=== PATIENT | male | born 1955 | race Caucasian/White ===

== ENCOUNTER 2022-03-18 07:58 | Outpatient (CLI) | payer BC, SELFPAY ==
--- NOTE | 2022-03-18 09:12 | ECG_ITS ---
Measurements Intervals [facility] Rate: 63 P: 71 [place]: 192 QRS: 44 QRSD: 80 T: 45 QT: 378 QTc: 389 Interpretive Statements SINUS RHYTHM BASELINE ARTIFACT- I, II, III, AVR, AVL, AVF NORMAL ECG NO PREVIOUS ECG AVAILABLE FOR COMPARISON Electronically Signed On 03-18-2022 11:56:21 QM CONSULTANT by Santosh Savage D.O.
[2022-03-18 10:00] LABS: Basophils Percent Auto 0.5 % (0.2-1.2); Eosinophils Absolute Auto 0.1 K/mm3 (0-0.3); Eosinophils Percent Auto 1.5 % (0-4.4); Hematocrit 49.5 % (42.0-52.0); Hemoglobin 17.1 g/dL (14.0-18.0); Immature Granulocyte Absolute 0.02 K/mm3 (0.00-0.031); Immature Granulocyte Percent A 0.3 % (0-0.5); Immature Platelet Fraction Pct 4.1 % (0.9-11.2); Lymphocytes Absolute Auto 1.06 K/mm3 (0.9-3.2); Lymphocytes Percent Auto 16.4 % (18.3-44.2); Mean Corpuscular HGB Conc 34.5 g/dl (32-36); Mean Corpuscular Hemoglobin 30.7 pg (26-34); Mean Corpuscular Volume 88.9 fl (80-100); Mean Platelet Volume 9.9 fl (7.4-10.4); Monocytes Absolute Auto 0.5 K/mm3 (0.1-0.6); Monocytes Percent Auto 7.1 % (2.6-8.5); Neutrophils Absolute Auto 4.8 K/mm3 (1.3-6.7); Neutrophils Percent Auto 74.2 % (45.5-73.1); Platelet Count Result 117 k/mm3 (150-375); Red Blood Count 5.57 M/mm3 (4.6-6.20); Red Cell Distribution Width 12.5 % (11.5-14.5); White Blood Count 6.5 K/mm3 (4.5-10.0)
[2022-03-18 10:06] LABS: Hemoglobin A1C 5.5 % (<5.7)
[2022-03-18 10:09] LABS: Albumin Level 4.8 g/dL (3.5-5.1); Anion Gap 7 mmol/L (8-16); Blood Urea Nitrogen 16 mg/dL (9-20); Calcium 9.5 mg/dL (8.4-10.2); Carbon Dioxide 29 mmol/L (22-30); Chloride 102 mmol/L (98-107); Estimated Glomerular Filt Rate > 60; Glucose 99 mg/dL (65-110); Potassium 3.9 mmol/L (3.4-5.0); Sodium 138 mmol/L (137-145)
[2022-03-18 10:11] LABS: Urine Cotinine NEGATIVE
== END 2022-03-18 07:59 | disposition home or self-care (01) ==
PROVIDERS: PCP Family Medicine; Visit Provider Orthopaedic Surgery
DX: Z01.818 Encounter for other preprocedural examination (principal); M17.11 Unilateral primary osteoarthritis, right knee
CPT/HCPCS: 80048; 80307; 82040; 83036; 85025; 85055; 87081; 87147; 87181; 87186; 93005

== ENCOUNTER 2022-04-08 01:41 | Day surgery (SDC) | payer BC, SELFPAY ==
--- NOTE | 2022-03-18 07:43 | PC.NURSE ---
PRE-OP INSTRUCTIONS, PLEASE READ CAREFULLY Report to the Outpatient Waiting Room, entrance under the green pavilion located off [facility], at time _1000_ on date _04/08/22_. Planned Procedure Time: _1200_. PACK A SMALL OVERNIGHT BAG AND LEAVE IN THE CAR ALONG WITH YOUR WALKER Time changes happen often and if your time is changed the preop area will call you the afternoon before. - You and your visitor will be asked to self-screen and do not enter if you have any COVID symptoms. - Only one visitor is requested with a max of two and NO children visitors are allowed at this time. - The patient visitor may be requested to leave or wait in car when not with patient due to distancing restrictions. - A mask is optional within the hospital. -VISITING HOURS 8AM-8PM Patients may have clear liquids (water, carbonated beverages, clear teas, apple juice) until 3 hours prior to surgery (0900 AM) with a maximum of 20 ounces. - No food from midnight until time of surgery Take the following medications with a SIP of water the morning of surgery: _LEVOTHYROXINE_ Medications to discontinue per DR. CLARKE - _ FISH OIL 7 DAYS PRIOR TO SURGERY, Date to take last dose 03/31/22_ Medications to discontinue per DR. MARCOS - _XARELTO 3 DAYS PRIOR TO SURGERY, Date to take last dose 04/04/22, THEN START LOVENOX DIRECTED_ Medications to discontinue per ANESTHESIA - _PROBIOTIC 3 DAYS PRIOR TO SURGERY, Date to take last dose 04/04/22_ Please no deodorant, or body powder the day of surgery. No jewelry (including any body piercings) or valuables the day of surgery, leave them at home. Please take a shower or bath the night before, or the morning of, surgery with an antibacterial soap. Wear comfortable, loose fitting clothing. - Jewelry must be removed prior to entering the operating room. Rings and piercings that are not removed may be cut off. - The hospital will not accept responsibility for valuables. - Please leave all valuables, including medications, at home the day of surgery. If you are going home after surgery, a licensed chassis driver must drive you home. - NO public transportation without another adult if you receive anesthesia. - We recommend that an adult stay with you for 24 hours following discharge. - We also recommend that you do not drive, make important decision, drink alcoholic beverages, or take any drugs that were not prescribed by your health care provider for at least 24 hours after your discharge time. Follow any additional instructions given to you from your surgeon. If you or anyone in your household have experienced Covid symptoms in the past week, please notify your surgeon or the nurse liaison at the phone number below for possible testing. Instructions given to __PT__and asked if any additional questions and then verbalized understanding. Patient advised to call surgeon office or pre surgery nurse liaison [phone] if any additional questions.
[2022-03-18 08:31] VITALS: BP 172/90; PULSE 66; RESP 20; TEMP 36.7; O2SAT 100; BMI 27.1
--- NOTE | 2022-04-06 13:43 | PM.IMHP ---
H&P: HPI History of Present Illness Date/Time: 04/06/22 13:43 Chief Complaint: Bilateral knee DJD Narrative: 66-year-old male patient of who presents today for a right total knee arthroplasty with cortisone injection left knee. Patient has been having pain in his knees for years. He has had previous arthroscopy to his right knee for a bucket-handle tear of the lateral meniscus that was excised. He has developed severe lateral compartment osteoarthritis than left knee. He is on Xarelto long-term due to history of DVTs and unable take anti-inflammatories. He has had cortisone injections in the past with minimal help, last ones were well over 4-5 months ago. He has reached a point where he feels he would rather proceed with total knee arthroplasty rather continue nonsurgical treatment. Review of Systems Review of Systems: All systems reviewed & are unremarkable except as noted in HPI and below PMFSH Social History Social History Smoking status: Never smoker Second hand tobacco smoke exposure: No Additional smoking assessment comments: PT DENIES ALL FORMS OF TOBACCO USE Alcohol intake: current Drinks per week: 8 Alcohol use details: BEER Substance use: never Substance use type: does not use Spiritual care concerns: No Meds Home Medications and Allergies Home Medications Medication Instructions Recorded Confirmed Type Probiotic 1 tab-cap DAILY 03/18/22 03/18/22 History cholecalciferol (vitamin D3) 25 25 mcg QAM 03/18/22 03/18/22 History mcg (1,000 unit) tablet (Vitamin D3) enoxaparin 100 mg/mL subcutaneous 100 mg subcut Q12H 03/18/22 03/18/22 History syringe (Lovenox) halobetasol propionate 0.05 % 1 applic topical BID PRN Skin 03/18/22 03/18/22 History topical cream Irritation hydrocortisone 0.25 % topical cream 1 applic topical BID PRN SKIN 03/18/22 03/18/22 History IRRITATION levothyroxine 125 mcg tablet 125 mcg QAM 03/18/22 03/18/22 History omega 7-cog-vqq-fish oil 1,200 mg 2 cap PO QAM 03/18/22 03/18/22 History (144 mg-216 mg) capsule (Fish Oil) omeprazole 20 mg capsule,delayed 20 mg PO DAILY 03/18/22 03/18/22 History release rivaroxaban 20 mg tablet (Xarelto) 20 mg HS 03/18/22 03/18/22 History Allergies Allergy/AdvReac Type Severity Reaction Status Date / Time No Known Allergies Allergy Verified 03/18/22 08:18 Exam Narrative: 66-year-old male alert pleasant. He is 6 ft 3 in and 220 lb. Right knee range motion is from 5-140 degrees. Hip range of motion is full without discomfort. Negative Stinchfield maneuver. 2+ dorsalis pedis and posterior artery pulse. Skin is all healthy normal. Normal quad strength. Normal stability in the knee, no effusion palpable. Resp: Auscultation: clear to auscultation bilaterally Cardio: Rate: regular rate Rhythm: regular rhythm Assessment and Plan Assessment and plan (1) Right knee DJD: Code(s): M17.11 - Unilateral primary osteoarthritis, right knee Status: Acute Plan 66 year old male who has severe lateral compartment osteoarthritis in the right knee with continued symptoms. Again he feels this point is ready to proceed with total knee arthroplasty. Surgical procedure as well as the risks and complications were discussed in detail all questions were answered and we will proceed. We will also give him a cortisone injection in the left knee at the time surgery to help with his pain in the left. His nasal swab did grow oxacillin sensitive Staph aureus he has been de colonizing as of 03 25. Chem panel is all within normal limits, creatinine 1.20 hemoglobin is 17.1 and platelets are 117. Patient will stop his role toe on 04/04 and then start taking Lovenox until 04 06 and then stop 24 hours prior to surgery. We will resume his Xarelto day after surgery. Due to this regimen patient is at a little bit increased risk for hematoma and may requi
--- NOTE | 2022-04-07 13:41 | WPDANESEPPF ---
Anes - Initial Pre Proc Eval Procedure: Operation Date: 04/08/22 12:00 Proposed Procedures p Right Total Knee Arthroplasty, Cortisone Injection Left Knee - Stefano Balbuena MD Date/Time: 04/07/22 13:41 Surgeon: Stefano Balbuena MD Pre Op Diagnosis: oa both knees Patient Data Age: 66 Gender: M Height: 1.89 m Weight: 97.1 kg Last Vital Signs Temp 36.7 C 03/18/22 08:31 Pulse 66 03/18/22 08:31 Resp 20 03/18/22 08:31 BP 172/90 H 03/18/22 08:31 Pulse Ox 100 03/18/22 08:31 O2 Del Method Room Air 03/18/22 08:31 Allergies Allergy/AdvReac Type Severity Reaction Status Date / Time No Known Allergies Allergy Verified 04/08/22 10:16 Home Medications Medication Instructions Recorded Confirmed Type Probiotic 1 tab-cap DAILY 03/18/22 04/08/22 History cholecalciferol (vitamin D3) 25 25 mcg QAM 03/18/22 04/08/22 History mcg (1,000 unit) tablet (Vitamin D3) enoxaparin 100 mg/mL subcutaneous 100 mg subcut Q12H 03/18/22 04/08/22 History syringe (Lovenox) halobetasol propionate 0.05 % 1 applic topical BID PRN Skin 03/18/22 03/18/22 History topical cream Irritation hydrocortisone 0.25 % topical cream 1 applic topical BID PRN SKIN 03/18/22 04/08/22 History IRRITATION levothyroxine 125 mcg tablet 125 mcg QAM 03/18/22 04/08/22 History omega 0-efe-izp-fish oil 1,200 mg 2 cap PO QAM 03/18/22 04/08/22 History (144 mg-216 mg) capsule (Fish Oil) omeprazole 20 mg capsule,delayed 20 mg PO DAILY 03/18/22 04/08/22 History release rivaroxaban 20 mg tablet (Xarelto) 20 mg HS 03/18/22 04/08/22 History ECG: Date of Service: 03/18/22 Procedure(s): CA 12 lead EKG Accession Number(s): [id number] cc: ~ ? Measurements Intervals? [place]? Rate: ? 63 ? P:? 71 [place]: ? 192? QRS:? 44 QRSD: ? 80 ? T:? 45 QT: ? 378? QTc:? 389? Interpretive Statements SINUS RHYTHM BASELINE ARTIFACT- I, II, III, AVR, AVL, AVF NORMAL ECG NO PREVIOUS ECG AVAILABLE FOR COMPARISON Electronically Signed On 03-18-2022 11:56:21 PERMANENT MOLD SUPERVISOR by Santosh Savage D.O. Patient hx anesthesia problems: none Family hx anesthesia problems: none Results Review: All pre-operative results and documents have been reviewed as part of the pre-operative evaluation. PMFSH Past Medical History Medical History (Updated 04/08/22 @ 10:32 by Rachid Jeter MD) Anticoagulant long-term use DVT (deep venous thrombosis) Hypothyroidism Right knee DJD Social History Social History Smoking status: Never smoker Second hand tobacco smoke exposure: No Additional smoking assessment comments: PT DENIES ALL FORMS OF TOBACCO USE Alcohol intake: current Drinks per week: 8 Alcohol use details: BEER Substance use: never Substance use type: does not use Living arrangements: with family Spiritual care concerns: No Anes - Eval Final PreProcedure Day of Procedure 04/07/22 13:41 Patient weight: overweight Heart: regular rate and rhythm Lungs: clear to auscultation and normal air movement Airway: Mallampati scale class II Neurological: alert and oriented Last oral intake: >/= 8 hours ASA classification: III Emergent: no Anesthetic plan: proceed Anesthesia type and monitoring: general LMA Results Review: All pre-operative results and documents have been reviewed as part of the pre-operative evaluation. Informed Consent: The patient's anesthetic plan and its attendant risks and benefits were discussed with the patient/family/POA. Questions were solicited and answers provided to the satisfaction of the patient/family/POA.
[2022-04-08] VITALS (11 sets, daily range): BP systolic 104–162; BP diastolic 62–93; PULSE 65–90; RESP 12–18; TEMP 36.2–36.9; O2SAT 93–100
--- NOTE | ~2022-04-08 | XR_ITS ---
EXAM: XR knee RT 2V DATE: 04/08/2022 17:26 HISTORY: RT TOTAL KNEE . COMPARISON: None available. FINDINGS: Normal mineralization. Interval right total knee arthroplasty placement, hardware componen ts in good position. No lytic or blastic lesion. Joint spaces are maintained. No erosion or periostea l change. Postsurgical gas in the soft tissues, joint space, and medullary cavity. No unexpected radi opaque foreign body. IMPRESSION: Expected postsurgical changes status post right knee total arthroplasty. No radiographic evidence of procedure or hardware related complication. Reviewed, dictated and finalized at location K. TIVE DESIGNER IMPRESSION: Expected postsurgical changes status post right knee total arthropl asty. No radiographic evidence of procedure or hardware related complication.
[2022-04-08] MEDS: ACETAMINOPHEN 500 MG TABLET 1000 MG PO ×2 (10:25→20:36)
[2022-04-08] MEDS: LACTATED RINGERS 1,000 ML 30 ML IV CONT ×2 (10:44→17:11)
--- NOTE | 2022-04-08 11:15 | SUR.PREOP ---
1110-PT INFORMED PRIOR SURGEON DELAYS DR. CLARKE 15 MINUTES.
--- NOTE | 2022-04-08 12:09 | WPDHPUPDATE1 ---
History and Physical Update Update Date/Time: 04/08/22 12:09 History and Physical has been reviewed, including an updated exam of the patient. There are NO changes in the patient's condition. Risks, benefits, and alternatives have been discussed and questions answered. Patient agrees to proceed with procedure.
[2022-04-08] MEDS: ceFAZolin 2 GM/D5W 50 ML 2 GM/50 ML BAG IVPB (12:21)
[2022-04-08] MEDS: LIDOCAINE HCL 1% PF INJ 5 ML VIAL 3 ML INFILTRATE (13:37)
[2022-04-08] MEDS: methylPREDNISolone ACETATE 80 MG/ML VIAL XX (13:38)
[2022-04-08] MEDS: ceFAZolin SODIUM 1 GM VIAL 3 GM (13:39)
[2022-04-08] MEDS: GENTAMICIN BONE CEMENT REFOBACIN 1 EACH TOPICAL (15:09)
[2022-04-08] MEDS: KETOROLAC 15 MG/ML VIAL (*BKC) IV PUSH ×2 (15:42→20:44)
[2022-04-08] MEDS: ceFAZolin SODIUM 1 GM VIAL 2 GM IV PUSH (16:29)
[2022-04-08] MEDS: TRANEXAMIC ACID 1,000 MG/10 ML AMPUL 1500 MG XX (16:30)
--- NOTE | 2022-04-08 16:49 | W.PM.PROC2 ---
Procedure Note - Detailed Date of Procedure 04/08/22 Pre-op Diagnosis oa both knees Post-op Diagnosis Same Procedure Performed CORTISONE INJECTION LEFT KNEE, RIGHT TOTAL KNEE ARTHROPLASTY Surgeon Stefano Balbuena MD Integration Aide Cristina and Daly Banerjee Anesthesia General Description of Procedure Patient was brought to the operating room and general anesthesia was administered. SCDs were placed on the left calf and were running during the procedure. After time-out, the left knee was prepped with ChloraPrep and 80 mg Depo-Medrol 3 cc 1% lidocaine were injected without difficulty. The right knee was then prepped draped usual fashion. He had about a 5 or 6 degree flexion contracture under anesthesia mild valgus deformity. He received 2 g Ancef weight based vancomycin preoperatively. Limb was exsanguinated tourniquet elevated to 250 mmHg. A 7 in longitudinal midline incision was used and a standard parapatellar arthrotomy utilized. Infrapatellar and suprapatellar fat pads were excised and a quadriceps synovectomy carried out. The patella had only minimal central chondromalacia and was felt to be most appropriate for non resurfacing. A very limited lateral facetectomy was performed. A guide vickey was inserted down the femoral canal after aspiration of canal contents using the 5 degree valgus cutting bushing 10 mm of bone removed the distal femur. This removed about 5 or 6 laterally. Next the tibial plateau was cut. We tried to make a skim cut off the low points of the tibial plateau. After the 1st cut I could see that we still had a little bit of cartilage remaining in the posterior aspect of the medial tibial plateau and we were too tight in flexion after recession of PCL meniscal remnants excised. Therefore an additional 2 mm or 3 mm of bone removed from the tibial plateau. Cut was made perpendicular to the axis of the tibia. With this done the knee accepted the 8 mm spacer block at 90? of flexion medially and 12 laterally. The sizing guide was applied to the distal femur set at 5? of external rotation which matched Whitesides line. Posterior referencing pinholes were placed and we applied the size 75 vanguard cutting block and AP and chamfer cuts were made. Trial fit line to line anterior posterior medial to lateral. Flexion gap was a little bit tight with the 10 CR insert trial. Alignment was excellent. The tibia was sized to a size 79 which fit line to line, at proper rotation, posterolateral to anteromedial. This was punched. We then trialed with a 10 . We were about 7? short of full extension due to excessive tightness laterally. There was 2 and half for 3 mm of play medially in this position. The 10 was appropriate or slightly tight at 90?. The IT band was pie crusted from the lateral collateral ligament posteriorly to lateral margin patellar tendon and the posterolateral capsule released from the tibial plateau. On read trialing the knee came to about 3? from full extension with a little bit of play perhaps a mm now laterally. Posterior capsule release was performed from the distal femur centrally and laterally to the lateral head of gastrocnemius tendon. Remaining posterior femoral osteophyte was removed. Trialing again the knee came out to about 1 degree from full extension with a barely positive bounce. He had a very long leg which put increased extension pressure just check it against gravity at 90? there was no anterior drawer possible as we were tight in flexion. Surprisingly had gravity flexion all the way to 140 without lift-off so he was not excessively tight but I felt that the ligament tension was not optimal. I elected to put a couple of degrees of slope on the tibial cut. We reapplied the tibial cutting guide increase the slope just a little bit and this removed about a mm of bone from the posterior aspect of the tibial plateau none from the front and we reapplied the tower and 3 punched. I thought this might give us that las
[2022-04-08] MEDS: fentaNYL CITRATE INJ (*CRX) 100 MCG/2 ML VIAL 25 MCG IV PUSH ×8 (17:18→17:32)
[2022-04-08] MEDS: HYDROmorphone HCL INJ (*CRX) 1 MG/ML SYR 0.5 MG IV PUSH ×4 (17:37→17:53)
--- NOTE | 2022-04-08 18:20 | ADMGEN ---
This patient, Jm Bedolla, was admitted to Medical Room 246-01. Patient/family oriented to hospital policies and general routines including ID bracelet, bed and alarms, visiting hours, pain management, procedures, bathroom and other care routines, personal items, smoking policy, room service/diet, and visiting hours. Information on how to activate the Rapid Response Team has been discussed. Patient/Family are encouraged to report perceived risks to care and to ask questions if they do not understand what they are told or what they should do.
[2022-04-08] MEDS: SODIUM CHLORIDE 0.9% IV 1,000 ML 125 ML IV CONT (20:35)
[2022-04-08] MEDS: SENNA/DOCUSATE SODIUM TABLET 2 TAB PO (20:35)
[2022-04-08] MEDS: oxyCODONE HCL (*CRX) 5 MG TAB IR PO (20:36)
--- NOTE | 2022-04-09 | ECHO_ITS ---
Patient Info Name: Jm Bedolla Age: 66 years : 1955 Gender: Male Ht: 75 in Wt: 208 lbs BSA: 2.24 m2 HR: 65 bpm BP: 108 / 63 mmHg Heart Rhythm: Sinus Rhythm Exam Date: 04/09/2022 10:24 AM Exam Location: [facility] Patient Status: Outpatient Admit Date: 04/08/2022 Staff Ordering Physician: Madeleine Martinez NP Patient Scheduler: Octavio Rajput RDCS, RT Attending Provider: Stefano Balbuena MD Referring Physician: Michelle NARAYANAN; Exam Type: CA echo doppler color flow Study Info Indications R01.1 - Cardiac murmur, unspecified Complete two-dimensional, color flow and Doppler transthoracic echocardiogram is performed. Strain analysis performed. Summary 1. Complete two-dimensional, color flow and Doppler transthoracic echocardiogram is performed. 2. Left ventricular systolic function is normal, estimated at 55-60%. 3. There is mildly increased left ventricular wall thickness. 4. The left ventricular diastolic function is grade I diastolic dysfunction. 5. Right ventricular chamber dimension is enlarged. 6. Right ventricular systolic function is normal. 7. Right atrial chamber dimension is mildly enlarged. 8. There is mild mitral valve regurgitation. 9. There is mild tricuspid valve regurgitation. 10. Dilated inferior vena cava with <50% collapse upon inspiration consistent with elevated right atrial pressure, 15 mmHg. Left Ventricle Left ventricular chamber dimension is normal. Left ventricular systolic function is normal, estimated at 55-60%. There is mildly increased left ventricular wall thickness. The left ventricular diastolic function is grade I diastolic dysfunction. Right Ventricle Right ventricular chamber dimension is enlarged. Right ventricular systolic function is normal. Left Atria Left atrial chamber dimension is normal. Right Atria Right atrial chamber dimension is mildly enlarged. Atrial Septum Intact interatrial septum visualized by color flow imaging. Aortic Valve The aortic valve is trileaflet. There is no aortic valve stenosis. There is no aortic valve regurgitation. Pulmonic Valve The pulmonic valve is not well visualized. Mitral Valve The mitral valve has normal leaflets. There is no mitral valve stenosis. There is mild mitral valve regurgitation. Tricuspid Valve There is mild tricuspid valve regurgitation. Pericardium/Pleural There is no pericardial effusion. Inferior Vena Cava Dilated inferior vena cava with <50% collapse upon inspiration consistent with elevated right atrial pressure, 15 mmHg. Aorta The aortic root size at the sinus of Valsalva is normal. Left Ventricular Outflow Tract Name Value Normal LVOT 2D LVOT Diameter 2.0 cm LVOT Doppler LVOT Peak Gradient 7 mmHg LVOT Mean Gradient 4 mmHg LVOT VTI 27 cm LVOT VTI/AV VTI Ratio 0.7 LVOT Stroke Volume 87 ml LVOT CO 5.2 l/min LVOT CI 2.3 l/min/m2 Brenda
--- NOTE | 2022-04-09 00:36 | PM.IMCN ---
Assessment and Plan Assessment and plan (1) S/P total knee arthroplasty: Code(s): Z96.659 - Presence of unspecified artificial knee joint Status: Acute Assessment and Plan: - postop care per Dr. Balbuena -DVT prophylaxis per orthopedic physician. The patient is currently on Xarelto. The patient has a history of DVT x2 and had been on Xarelto prior to surgery. And was temporarily transition to Lovenox. Now he is back on Xarelto -PT OT per orthopedic doctor. (2) Chronic GERD: Code(s): K21.9 - Gastro-esophageal reflux disease without esophagitis Status: Acute Assessment and Plan: -continue with omeprazole (3) Anticoagulant long-term use: Code(s): Z79.01 - termite exterminator helper (current) use of anticoagulants Status: Acute Assessment and Plan: -patient is currently on Xarelto (4) Hypothyroidism: Code(s): E03.9 - Hypothyroidism, unspecified Status: Acute Assessment and Plan: -check thyroid level -continue with levothyroxine (5) DVT (deep venous thrombosis): Code(s): I82.409 - Acute embolism and thrombosis of unspecified deep veins of unspecified lower extremity Status: Acute Assessment and Plan: X2 -continue with thoracic (6) Murmur: Code(s): R01.1 - Cardiac murmur, unspecified Status: Acute Assessment and Plan: -echo ordered Plan Thank you for the consultation. HPI Data of Consult Consult date: 04/08/22 Requesting Physician: Stefano Balbuena MD Primary Care Provider: Estuardo Roman, Consult Narrative Narrative: Jm Bedolla is a 66 year old male who presented today for right total knee arthroplasty with a cortisone injection in the left knee. The patient is chronically on Xarelto for history of DVTs. See operative note. Hospitalist group was consulted for medical management. On the date of service 04/08/2022 Review of Systems Review of Systems: See HPI All systems reviewed & are unremarkable except as noted in HPI and below Constitutional: Constitutional: Reports as per HPI and Reports no additional constitutional complaints Eyes: Eyes: Reports as per HPI and Reports no additional eye complaints ENT: Reports system reviewed and no additional complaints, except as documented and Reports Normal hearing present Cardiovascular: Cardiovascular: Reports no additional cardiovascular complaints Respiratory: Respiratory: Reports no additional respiratory complaints and Reports no additional respiratory complaints Gastrointestinal: Gastrointestinal: Reports as per HPI and Reports no additional gastrointestinal complaints Musculoskeletal: Musculoskeletal: Reports no additional musculoskeletal complaints Integumentary/Breasts: Skin/Breast: Reports system reviewed and no additional complaints, except as docu and Reports as per HPI Neurologic: Reports system reviewed and no additional complaints, except as documented, Reports as per HPI and Reports Normal hearing present Psychiatric: Psychiatric: Reports no additional psychiatric complaints and Reports as per HPI Endocrine: Endocrine: Reports no additional endocrine complaints Hematologic/Lymphatic: Hematologic/Lymphatic: Reports no additional hematologic/lymphatic complaints Allergic/Immunologic: Allergic/Immunologic: Reports no additional allergic/immunologic complaints PMF Past Medical History Medical History (Updated 04/09/22 @ 00:52 by Madeleine Martinez NP) Anticoagulant long-term use Chronic GERD DVT (deep venous thrombosis) Hypothyroidism Right knee DJD Surgical History Surgical History (Updated 04/09/22 @ 00:44 by Madeleine Martinez NP) H/O hernia repair Hx of arthroscopic knee surgery Bilateral knees Hx of cholecystectomy S/P total knee arthroplasty Right Family History Family History (Updated 04/09/22 @ 00:45 by Madeleine Martinez NP) Mother Heart disease Father Cancer Social History Social History (
[2022-04-09] MEDS: oxyCODONE HCL (*CRX) 5 MG TAB IR PO ×4 (01:06→12:46)
[2022-04-09] MEDS: ACETAMINOPHEN 500 MG TABLET 1000 MG PO ×3 (01:06→12:14)
[2022-04-09 04:00] VITALS: BP 108/63; PULSE 66; RESP 18; TEMP 36.8; O2SAT 96
[2022-04-09] MEDS: RIVAROXABAN 10 MG TABLET PO (05:33)
[2022-04-09] MEDS: LEVOTHYROXINE SODIUM 125 MCG TABLET BY MOUTH (05:33)
[2022-04-09 05:44] LABS: Basophils Percent Auto 0.1 % (0.2-1.2); Hematocrit 40.7 % (42.0-52.0); Hemoglobin 14.1 g/dL (14.0-18.0); Immature Granulocyte Absolute 0.03 K/mm3 (0.00-0.031); Immature Granulocyte Percent A 0.2 % (0-0.5); Lymphocytes Absolute Auto 0.42 K/mm3 (0.9-3.2); Lymphocytes Percent Auto 3.5 % (18.3-44.2); Mean Corpuscular HGB Conc 34.6 g/dl (32-36); Mean Corpuscular Hemoglobin 30.5 pg (26-34); Mean Corpuscular Volume 87.9 fl (80-100); Mean Platelet Volume 9.8 fl (7.4-10.4); Monocytes Absolute Auto 0.3 K/mm3 (0.1-0.6); Monocytes Percent Auto 2.5 % (2.6-8.5); Neutrophils Absolute Auto 11.3 K/mm3 (1.3-6.7); Neutrophils Percent Auto 93.7 % (45.5-73.1); Platelet Count Result 113 k/mm3 (150-375); Red Blood Count 4.63 M/mm3 (4.6-6.20); Red Cell Distribution Width 12.4 % (11.5-14.5)
[2022-04-09 06:05] LABS: Lactic Acid Reflex 2.1 mmol/L (0.7-2.0)
[2022-04-09 06:10] LABS: Alanine Aminotransferase 30 U/L (6-50); Albumin Level 3.8 g/dL (3.5-5.1); Alkaline Phosphatase 45 U/L (38-126); Anion Gap 6 mmol/L (8-16); Aspartate Amino Transferase 28 U/L (17-59); Bilirubin,Total 0.9 mg/dL (0.2-1.3); Blood Urea Nitrogen 16 mg/dL (9-20); Calcium 8.4 mg/dL (8.4-10.2); Carbon Dioxide 27 mmol/L (22-30); Chloride 105 mmol/L (98-107); Estimated CRCL calculation 78 ml/min; Estimated Glomerular Filt Rate > 60; Glucose 133 mg/dL (65-110); Potassium 4.1 mmol/L (3.4-5.0); Sodium 138 mmol/L (137-145)
[2022-04-09 06:36] LABS: Thyroid Stimulating Hormone Reflex 0.148 uIU/mL (0.465-4.68)
--- NOTE | 2022-04-09 07:16 | PM.PNORT ---
Subjective Subjective Date/Time Seen: 04/09/22 07:16 postop day 1 patient is alert. He is afebrile vital signs are stable. Morning labs are noted. His dressing is dry and intact. Very minimal swelling at the knee. He is able to straight leg raise. Neurovascularly he is intact. He was up walking to the restroom overnight. Pain overall is well controlled. We will plan to have patient work with therapy today if he continues to do well we will plan on discharging him home this afternoon once his IV antibiotics have been completed. Objective Data Vital Signs Vital Signs: Vital Signs - 24 hr 04/08/22 10:51 04/08/22 17:00 04/08/22 17:15 Temperature 36.2 C L 36.4 C Pulse Rate 65 90 83 Respiratory Rate 16 13 15 Blood Pressure 144/83 H 162/93 H 138/83 Pulse Oximetry 98 100 100 Oxygen Delivery Room Air Simple Face Mask Room Air Oxygen Flow Rate 10 04/08/22 17:30 04/08/22 17:45 04/08/22 18:00 Temperature Pulse Rate 71 74 78 Respiratory Rate 13 13 12 Blood Pressure 129/79 126/76 131/84 Pulse Oximetry 100 100 100 Oxygen Delivery Nasal Cannula Nasal Cannula Nasal Cannula Oxygen Flow Rate 2 2 2 04/08/22 18:20 04/08/22 18:35 04/08/22 19:01 Temperature 36.7 C 36.6 C 36.9 C Pulse Rate 81 76 74 Respiratory Rate 16 18 18 Blood Pressure 139/83 130/81 133/78 Pulse Oximetry 100 100 99 Oxygen Delivery Oxygen Flow Rate 04/08/22 20:00 04/08/22 20:30 04/08/22 23:55 Temperature 36.5 C 36.4 C Pulse Rate 87 72 Respiratory Rate 18 18 Blood Pressure 138/83 104/62 Pulse Oximetry 93 95 Oxygen Delivery Room Air Oxygen Flow Rate 04/09/22 04:00 Temperature 36.8 C Pulse Rate 66 Respiratory Rate 18 Blood Pressure 108/63 Pulse Oximetry 96 Oxygen Delivery Oxygen Flow Rate Intake/Output Intake/Output: Intake & Output 04/06/22 04/07/22 04/08/22 04/09/22 23:59 23:59 23:59 23:59 Intake Total 1250 1100 Output Total 100 Balance 1250 1000 Meds/Results Medications: Active Medications Generic Name Dose Route Start Last Admin Trade Name Freq PRN Reason Stop Dose Admin Acetaminophen 1,000 mg 04/08/22 18:15 04/09/22 05:33 Acetaminophen 500 Mg Tablet PO 1,000 mg Q6HR [facility] Administration Cephalexin HCl 500 mg 04/09/22 15:00 Cephalexin 500 Mg Capsule PO Q6HR [facility] Halobetasol Propionate 1 applic 04/08/22 19:18 Halobetasol Propionate 0.05% Cream 15 Gm TOPICAL BID PRN Skin Irritation Cefazolin Sodium 1 gm in 50 mls @ 100 mls/hr 04/08/22 18:02 04/09/22 01:36 Ancef 1 Gm/D5w 50 Ml Pm IVPB 04/09/22 10:31 Infused Q8H [facility] Infusion Levothyroxine Sodium 125 mcg 04/09/22 06:30 04/09/22 05:33 Levothyroxine Sodium 125 Mcg Tablet BY MOUTH 125 mcg DAILY@0630 [facility] Administration Miscellaneous Information 0 each 04/08/22 00:01 Halobetasol Add Site Of Application XX 05/08/22 00:00 CLARIFY [facility] Miscellaneous Information 0 each 04/08/22 00:01 Hydrocortisone 0.25% Non Formulary May We Sub With 1% Also Need Site Of Use XX 05/08/22 00:00 CLARIFY [facility] Miscellaneous Information 0 each 04/09/22 00:01 Oxycodone Prn 4-10 Overlaps With Morphine Prn 7-10 Please Clarify XX 05/09/22 00:00 CLARIFY [facility] Morphine Sulfate 2 mg 04/08/22 18:02 Morphine Sulfate (*Crx) 2 Mg/Ml Inj IV PUSH Q1H PRN Pain Rated 7-10 Naloxone HCl 0.1 mg 04/08/22 18:02 Naloxone Hcl 0.4 Mg/Ml Vial IV PUSH Q2M PRN Opiate Reversal Non-Formulary Medication 1 applic 04/08/22 18:02 Hydrocortisone TOPICAL BID PRN SKIN IRRITATION Oxycodone HCl 5 mg 04/08/22 21:00 04/09/22 05:32 Oxycodone Hcl (*Crx) 5 Mg Tab Ir PO 5 mg Q4HR [facility] Administration Oxycodone HCl 5 mg 04/08/22 18:02 Oxycodone Hcl (*Crx) 5 Mg Tab Ir PO Q4H PRN Pain Rated 4-10 Pantoprazole Sodium 40 mg 04/09/22 09:00 Pantoprazole 40 Mg Tablet PO 05/09/22 08:59 DAILY [facility] Perflutren Lipid Microsphere 0 ml
--- NOTE | 2022-04-09 07:25 | PM.DS ---
DS: Admitting Diagnosis Discharge Date 04/09 Admitting Diagnosis Right knee DJD DS: Discharge Diagnosis Discharge Diagnosis (1) S/P total knee arthroplasty: Code(s): Z96.659 - Presence of unspecified artificial knee joint Status: Acute DS: Summary Hospital Course Hospital Course: 66-year-old male who underwent right knee arthroplasty 04/08. Underwent the procedure without complications. Postoperatively he has been afebrile vital signs are stable. His dressing is dry is intact. Neurovascularly he is intact. His pain is well controlled with scheduled Tylenol as well as oxycodone 5 mg. He is weight-bearing as tolerated. Was up to the restroom multiple times the day of surgery and overall is doing well. Morning of postop day 1 he had minimal swelling in the knee. His Xarelto 10 mg was started early due to his history of DVT. He is going to remain on low-dose Xarelto for a couple days before his increased back to his normal 20 mg. Patient be discharged home on 04/09. He was advised he needs to keep thel leg elevated home to prevent swelling but also do his exercises on an hourly basis to prevent stiffness. He has outpatient therapy starting next Wednesday. Patient was go home on a 2 week course of Keflex as well Senokot and MiraLax. Patient was advised any questions or concerns he is to call the office otherwise we will see him at this point date. We will plan to call the patient tomorrow check on the status of any swelling in the knee, he is having minimal swelling we will begin to increase Xaerlto at that time. Time Spent with Patient Time attestation: Total time spent providing and/or coordinating discharge services: DS: Data Data Completed and Pending Labs on day of discharge: Labs from last 24 hours 04/09/22 04/09/22 04/09/22 05:39 05:39 05:39 WBC RBC Hgb Hct MCV MCH MCHC RDW Plt Count MPV Immature Gran % (Auto) Neut % (Auto) Lymph % (Auto) [place] % (Auto) Eos % (Auto) Baso % (Auto) Lymph # (Auto) [place] # (Auto) Eos # (Auto) Baso # (Auto) Abs Immat Gran (auto) Absolute Neuts (auto) Absolute Nucleated RBC Nucleated RBC % Sodium Potassium Chloride Carbon Dioxide Anion Gap BUN Creatinine Estim Creat Clear Calc Estimated GFR Glucose Lactic Acid 2.1 H Calcium Total Bilirubin AST ALT Alkaline Phosphatase Total Protein Albumin TSH (Reflex) 0.148 L Free T4 Pending Blood Type Antibody Screen 04/09/22 04/09/22 04/08/22 05:39 05:39 10:28 WBC 12.0 H RBC 4.63 Hgb 14.1 D Hct 40.7 L MCV 87.9 MCH 30.5 MCHC 34.6 RDW 12.4 Plt Count 113 L MPV 9.8 Immature Gran % (Auto) 0.2 Neut % (Auto) 93.7 H Lymph % (Auto) 3.5 L [place] % (Auto) 2.5 L Eos % (Auto) 0.0 Baso % (Auto) 0.1 L Lymph # (Auto) 0.42 L [place] # (Auto) 0.3 Eos # (Auto) 0.0 Baso # (Auto) 0.0 Abs Immat Gran (auto) 0.03 Absolute Neuts (auto) 11.3 H Absolute Nucleated RBC 0.0 Nucleated RBC % 0.0 Sodium 138 Potassium 4.1 Chloride 105 Carbon Dioxide 27 Anion Gap 6 L BUN 16 Creatinine 1.00 Estim Creat Clear Calc 78 Estimated GFR > 60 Glucose 133 H Lactic Acid Calcium 8.4 Total Bilirubin 0.9 AST 28 ALT 30 Alkaline Phosphatase 45 Total Protein 6.0 L Albumin 3.8 TSH (Reflex) Free T4 Blood Type B Positive Antibody Screen Negative Discharge Plan Discharge Patient Disposition: Home, Self-Care Discharge Instructions: LISA CLARKE M.D [facility], [address] [address] POST-OPERATIVE DISCHARGE INSTRUCTIONS TOTAL KNEE ARTHROPLASTY 1. When resting, lie on back with leg elevated above heart to minimize swelling. Significant swelling could indicate a blood clot and if this oc
[2022-04-09 07:57] VITALS: BP 110/64; PULSE 73; RESP 18; TEMP 36.3; O2SAT 98
[2022-04-09 08:25] LABS: Free T4 Free Thyroxine Reflex 1.29 ng/dL (0.78-2.19)
[2022-04-09 08:42] LABS: Reflex Lactic Acid Yes or No Add Lactic
[2022-04-09] MEDS: SACCHAROMYCES BOULARDII 250 MG CAPSULE PO (08:45)
[2022-04-09] MEDS: PANTOPRAZOLE 40 MG TABLET PO (08:45)
[2022-04-09] MEDS: CHOLECALCIFEROL 1,000 UNITS TABLET 1000 UNITS BY MOUTH (08:45)
[2022-04-09] MEDS: polyethylene glycoL 3350 17 GM POWD.PACK PO (08:45)
[2022-04-09] MEDS: SENNA/DOCUSATE SODIUM TABLET 2 TAB PO (08:46)
[2022-04-09 09:14] LABS: Total Triiodothyronine (T3) 0.87 NG/ML (0.97-1.69)
[2022-04-09 09:18] LABS: Lactic Acid 1.7 mmol/L (0.7-2.0)
--- NOTE | 2022-04-09 10:45 | PM.IMPN ---
Progress Note: A&P Assessment and Plan (1) S/P total knee arthroplasty: Code(s): Z96.659 - Presence of unspecified artificial knee joint Status: Acute Assessment and Plan: It appears Orthopedics planning on discharge today. Working with PT/OT doing well. Pt. states pain is controlled. (2) Anticoagulant long-term use: Code(s): Z79.01 - intermediate frame tender (current) use of anticoagulants Status: Acute Assessment and Plan: 2/2 hx vte, recurrent. Chronically on Xarelto which will continue - temporary postoperative dose reduction per orthopedic recs. (3) Hypothyroidism: Code(s): E03.9 - Hypothyroidism, unspecified Status: Acute (4) DVT (deep venous thrombosis): Code(s): I82.409 - Acute embolism and thrombosis of unspecified deep veins of unspecified lower extremity Status: Acute (5) Chronic GERD: Code(s): K21.9 - Gastro-esophageal reflux disease without esophagitis Status: Acute Time Spent With Patient Time with patient: 15 - 25 minutes Subjective Date/time seen: 04/09/22 10:45 Interval history: Patient states rested well overnight denies new complaints this morning states pain is generally well controlled a little more sore with movement. Review of Systems Review of Systems: All systems reviewed & are unremarkable except as noted in HPI and below Constitutional: Constitutional: Reports no additional constitutional complaints Exam Narrative: GENERAL APPEARANCE: Appears to be in no acute distress. ENT: Hearing grossly intact, no nasal discharge NECK: Neck supple, trachea midline. CARDIAC: Normal S1/S2. Rhythm is regular. No murmurs, rubs, or gallops. No cyanosis or pallor. Extremities are warm and well perfused. LUNGS: Clear to auscultation without rales, rhonchi, wheezing or diminished breath sounds. Respirations even and unlabored. ABDOMEN: BS positive x 4 quadrants. ND/NT. PERIPHERAL VASCULAR: Peripheral pulses palpable. Normal perfusion, cap refill <2 seconds. No edema. MSK: R. Knee with surgical dressing c/d/i. NEURO: Follows commands. No focal deficits. SKIN: [place] without lesions or eruptions. PSYCH: Stable, no paranoia or delusional thinking. Objective Data Vital Signs Vital Signs: Vital Signs - 24 hr 04/08/22 10:51 04/08/22 17:00 04/08/22 17:15 Temperature 97.1 F L 97.6 F Pulse Rate 65 90 83 Respiratory Rate 16 13 15 Blood Pressure 144/83 H 162/93 H 138/83 Pulse Oximetry 98 100 100 Oxygen Delivery Room Air Simple Face Mask Room Air Oxygen Flow Rate 10 04/08/22 17:30 04/08/22 17:45 04/08/22 18:00 Temperature Pulse Rate 71 74 78 Respiratory Rate 13 13 12 Blood Pressure 129/79 126/76 131/84 Pulse Oximetry 100 100 100 Oxygen Delivery Nasal Cannula Nasal Cannula Nasal Cannula Oxygen Flow Rate 2 2 2 04/08/22 18:20 04/08/22 18:35 04/08/22 19:01 Temperature 98.1 F 97.9 F 98.4 F Pulse Rate 81 76 74 Respiratory Rate 16 18 18 Blood Pressure 139/83 130/81 133/78 Pulse Oximetry 100 100 99 Oxygen Delivery Oxygen Flow Rate 04/08/22 20:00 04/08/22 20:30 04/08/22 23:55 Temperature 97.7 F 97.6 F Pulse Rate 87 72 Respiratory Rate 18 18 Blood Pressure 138/83 104/62 Pulse Oximetry 93 95 Oxygen Delivery Room Air Oxygen Flow Rate 04/09/22 04:00 04/09/22 08:00 04/09/22 07:57 Temperature 98.2 F 97.4 F L Pulse Rate 66 73 Respiratory Rate 18 18 Blood Pressure 108/63 110/64 Pulse Oximetry 96 98 Oxygen Delivery Room Air Oxygen Flow Rate Intake/Output Intake/Output: Intake & Output 04/06/22 04/07/22 04/08/22 04/09/22 23:59 23:59 23:59 23:59 Intake Total 1250 1340 Output Total 100 Balance 1250 1240 Meds/Results Medications: Active Medications Generic Name Dose Route Start Last Admin Trade Name Freq PRN Reason Stop Dose Admin Acetaminophen 1,000 mg 04/08/22 18:15 04/09/22 05:33 Acetaminophen 500 Mg Tablet PO 1,000 mg Q6HR [facility] Administration Cephalexin HCl 500
--- NOTE | 2022-04-09 10:47 | WPDANESPN ---
Anes - Prog Note Post-Op Date/Time: 04/09/22 10:47 Cardiovascular status: normal Respiratory status: normal Airway patency: baseline Mental status: baseline Post-Op hydration status: normal Vital Signs: Last Vital Signs Temp 36.3 C L 04/09/22 07:57 Pulse 73 04/09/22 07:57 Resp 18 04/09/22 07:57 BP 110/64 04/09/22 07:57 Pulse Ox 98 04/09/22 07:57 O2 Del Method Room Air 04/09/22 08:00 O2 Flow Rate 2 04/08/22 18:00 Pain Score (VAS): 06/05 I/O: Intake & Output 04/08/22 04/09/22 04/09/22 23:59 07:59 15:59 Intake Total 1200 1100 240 Output Total 100 Balance 1200 1000 240 Laboratory Tests 04/09/22 05:39 04/09/22 05:39 04/08/22 04/09/22 04/09/22 10:28 05:39 05:39 WBC 12.0 H RBC 4.63 Hgb 14.1 D Hct 40.7 L MCV 87.9 MCH 30.5 MCHC 34.6 RDW 12.4 Plt Count 113 L MPV 9.8 Immature Gran % (Auto) 0.2 Neut % (Auto) 93.7 H Lymph % (Auto) 3.5 L [place] % (Auto) 2.5 L Eos % (Auto) 0.0 Baso % (Auto) 0.1 L Lymph # (Auto) 0.42 L [place] # (Auto) 0.3 Eos # (Auto) 0.0 Baso # (Auto) 0.0 Abs Immat Gran (auto) 0.03 Absolute Neuts (auto) 11.3 H Absolute Nucleated RBC 0.0 Nucleated RBC % 0.0 Sodium 138 Potassium 4.1 Chloride 105 Carbon Dioxide 27 Anion Gap 6 L BUN 16 Creatinine 1.00 Estim Creat Clear Calc 78 Estimated GFR > 60 Glucose 133 H Lactic Acid Calcium 8.4 Total Bilirubin 0.9 AST 28 ALT 30 Alkaline Phosphatase 45 Total Protein 6.0 L Albumin 3.8 TSH (Reflex) Free T4 Total T3 Blood Type B Positive Antibody Screen Negative 04/09/22 04/09/22 04/09/22 05:39 05:39 05:39 WBC RBC Hgb Hct MCV MCH MCHC RDW Plt Count MPV Immature Gran % (Auto) Neut % (Auto) Lymph % (Auto) [place] % (Auto) Eos % (Auto) Baso % (Auto) Lymph # (Auto) [place] # (Auto) Eos # (Auto) Baso # (Auto) Abs Immat Gran (auto) Absolute Neuts (auto) Absolute Nucleated RBC Nucleated RBC % Sodium Potassium Chloride Carbon Dioxide Anion Gap BUN Creatinine Estim Creat Clear Calc Estimated GFR Glucose Lactic Acid 2.1 H Calcium Total Bilirubin AST ALT Alkaline Phosphatase Total Protein Albumin TSH (Reflex) 0.148 L Free T4 1.29 Total T3 Blood Type Antibody Screen 04/09/22 04/09/22 05:39 09:02 WBC RBC Hgb Hct MCV MCH MCHC RDW Plt Count MPV Immature Gran % (Auto) Neut % (Auto) Lymph % (Auto) [place] % (Auto) Eos % (Auto) Baso % (Auto) Lymph # (Auto) [place] # (Auto) Eos # (Auto) Baso # (Auto) Abs Immat Gran (auto) Absolute Neuts (auto) Absolute Nucleated RBC Nucleated RBC % Sodium Potassium Chloride Carbon Dioxide Anion Gap BUN Creatinine Estim Creat Clear Calc Estimated GFR Glucose Lactic Acid 1.7 Calcium Total Bilirubin AST ALT Alkaline Phosphatase Total Protein Albumin TSH (Reflex) Free T4 Total T3 0.87 L Blood Type Antibody Screen Post-procedural complaints: none Patient Feedback: Patient satisfied with anesthetic care.
== END 2022-04-09 14:50 | disposition home or self-care (01) ==
LOC: ANHSURGERY 09:44 → ANH2MED 18:06
PROVIDERS: Nurse Practitioner; PCP Family Medicine; Visit Provider Orthopaedic Surgery
PROC: (CPT 27447; principal; 2022-04-08 12:00)
DX: M17.0 Bilateral primary osteoarthritis of knee (principal); E03.9 Hypothyroidism, unspecified; K21.9 Gastro-esophageal reflux disease without esophagitis; I82.409 Acute embolism and thrombosis of unspecified deep veins of unspecified lower extremity; R01.1 Cardiac murmur, unspecified; Z79.01 Long term (current) use of anticoagulants
CPT/HCPCS: 27447; 20610; 36415; 73560; 80053; 83605; 84439; 84443; 84480; 85025; 86850; 86900; 86901; 93306; 97110; 97161; 97165; 97530; 97535; A9270; C1713; C1776; J0171; J0330; J0690; J1040; J1170; J1885; J2250; J2270; J2405; J2704; J2795; J3010; J3370; J7030; J7120